=== PATIENT | female | born 1970 | race American Indian/Alaskan Native ===

== ENCOUNTER 2019-03-25 13:47 | Emergency (ER) | payer SELFPAY ==
[2019-03-25 14:13] VITALS: BP 162/99
--- NOTE | 2019-03-25 14:14 | Event Note ---
ED Screening Note Date of service: 03/25/19 Time: 14:10 ED Screening Note: This is a 48 y.o. F. that presents to the ER with a headache for 10 hours. Took ibuprofen. Reports nausea, vomiting, and palpitations with associated symptoms. This initial assessment/diagnostic orders/clinical plan/treatment(s) is/are subject to change based on patients health status, clinical progression and re- assessment by fellow clinical providers in the ED. Further treatment and workup at subsequent clinical providers discretion. Patient/guardian urged not to elope from the ED as their condition may be serious if not clinically assessed and managed. Initial orders include: CT of head
== END 2019-03-25 14:30 | disposition left against medical advice (07) ==
LOC: ED 13:47
DX: R51 Headache (principal); Z53.21 Procedure and treatment not carried out due to patient leaving prior to being seen by health care provider